=== PATIENT | male | born 1990 | race Caucasian/White ===

== ENCOUNTER 2017-07-04 19:17 | Emergency (ER) | payer SELFPAY | END 2017-07-04 19:41 | disposition home or self-care (01) | LOC: ERS 19:17 | DX: J06.9 Acute upper respiratory infection, unspecified (principal); J45.909 Unspecified asthma, uncomplicated; F17.210 Nicotine dependence, cigarettes, uncomplicated | CPT/HCPCS: 99283 ==

== ENCOUNTER 2018-01-08 02:51 | Inpatient (IN) | payer SELFPAY ==
[2018-01-08] MEDS ORDERED: Fentanyl 100 MCG/2 ML VIAL ONE ×3 (03:10→13:16)
[2018-01-08 04:49] LABS: #Lymphocytes 1.4 thou/uL (1.20-3.40); #Monocytes 1.1 thou/uL (0.11-0.59); #Neutrophils 14.2 thou/uL (1.40-6.50); %Basophils 0.2 % (0.0-1.0); %Eosinophils 0.1 % (0.0-10.0); %Lymphocytes 8.6 % (21.0-51.0); %Monocytes 6.4 % (0.0-10.0); %Neutrophils 84.7 % (42.0-75.0); Hemoglobin 14.6 g/dL (14.0-18.0); Mean Corpuscular HGB CONC 33.2 g/dL (32.0-36.0); Mean Corpuscular Hemoglobin 29.8 pg (27.0-31.0); Mean Corpuscular Volume 89.8 fL (78.0-98.0); Mean Platelet Volume 8.5 fL (7.4-10.4); Platelet Count 195 thou/uL (130-400); RBC Distribution Width 12.5 % (11.5-14.5); Red Blood Cell (RBC) Count 4.91 mill/uL (4.70-6.10); White Blood Cell (WBC) Count 16.8 thou/uL (4.8-10.8)
[2018-01-08 04:57] LABS: Amphetamine Detected (NotDetected); Barbiturates Screen Not Detected (NotDetected); Benzodiazepine Screen Not Detected (NotDetected); Cocaine Metabolite Screen Not Detected (NotDetected); Medtox Control Line Valid? VALID (VALID); Medtox Reader # READER 4; Methadone Not Detected (NotDetected); Methamphetamine Detected (NotDetected); Opiate Screen Not Detected (NotDetected); Oxycodone Screen Not Detected (NotDetected); Phencyclidine (PCP) Not Detected (NotDetected); THC/Cannabinoid Screen Detected (NotDetected); Tricyclic Screen Not Detected (NotDetected)
[2018-01-08] MEDS ORDERED: Ondansetron HCl/PF 4 MG/2 ML Vial IVP PRN ×2 (05:07→13:19)
[2018-01-08] MEDS ORDERED: Morphine 4 MG/ML VIAL SLOW IVP PRN (05:07)
[2018-01-08 05:10] LABS: Acetaminophen Less than 6.0 mcg/mL (10.0-30.0); Alcohol 47 mg/dL (Less than 10); Salicylate Less than 8.0 mg/dL (15.0-30.0)
[2018-01-08 05:11] LABS: ALT (SGPT) 13 U/L (8-55); AST (SGOT) 24 U/L (5-34); Albumin 4.4 g/dL (3.5-5.0); Alkaline Phosphatase 55 U/L (40-150); Anion Gap 14 mmol/L (10-20); BUN (Urea Nitrogen) 10 mg/dL (8.9-20.6); Bilirubin, Total 0.4 mg/dL (0.2-1.2); CK (CPK) 417 U/L (30-200); Calc. Creatinine Clearance 0 mL/min (70-130); Calcium 8.3 mg/dL (7.8-10.44); Carbon Dioxide 20 mmol/L (22-29); Chloride 108 mmol/L (98-107); Estimated GFR-MDRD Greater than 90; Globulin 2.8 g/dL (2.4-3.5); Glucose 97 mg/dL (70-105); Potassium 3.7 mmol/L (3.5-5.1); Protein, Total 7.2 g/dL (6.0-8.3); Sodium 138 mmol/L (136-145)
[2018-01-08] MEDS: Sodium Chloride 0.9% 1,000 ML IV SCH ×4 (05:32→20:11)
[2018-01-08 05:59] VITALS: BMI 19.4
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
[2018-01-08] MEDS ORDERED: CEFAZOLIN/Water 2 GM/20 ML SYRINGE SLOW IVP SCH (08:15)
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
[2018-01-08] MEDS ORDERED: Ondansetron ODT 4 MG TAB PO PRN (10:14)
[2018-01-08] MEDS ORDERED: Acetaminophen/Codeine 30-300mg Tablet PO PRN (10:16)
[2018-01-08] MEDS ORDERED: Morphine 4 MG/ML VIAL ONE (11:08)
[2018-01-08] MEDS ORDERED: CEFAZOLIN/Water 2 GM/20 ML SYRINGE ONE (11:11)
[2018-01-08] MEDS ORDERED: Midazolam HCl 2 mg/2 ml Vial ONE (11:22)
[2018-01-08] MEDS: CEFAZOLIN/Water 2 GM/20 ML SYRINGE SLOW IVP SCH ×2 (11:33→18:04)
[2018-01-08] MEDS ORDERED: Promethazine HCl 25 MG/ML VIAL IM PRN ×2 (13:19→17:16)
[2018-01-08] MEDS ORDERED: Promethazine HCl 25 MG/ML VIAL SLOW IVP PRN (13:19)
[2018-01-08] MEDS ORDERED: HYDROmorphone 2 MG/ML VIAL SLOW IVP PRN (13:19)
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
--- NOTE | 2018-01-08 14:19 | RAD ---
LEFT FOREARM RADIOGRAPHS 2 VIEWS: DATE: 01/08/18. PROVIDED CLINICAL HISTORY: Fracture. FINDINGS: Comparison is made with the examination performed earlier same date. Spot fluoroscopic frontal and l ateral views of the left forearm demonstrate plate and screw fixation of the previously described for earm fractures with resultant improved alignment. IMPRESSION: As above. POS: [facility]
[2018-01-08] MEDS: Nicotine 21 MG PATCH TD SCH (14:36)
[2018-01-08] MEDS ORDERED: Ondansetron HCl/PF 4 MG/2 ML Vial ONE (14:56)
[2018-01-08] MEDS ORDERED: Lidocaine 1% PF 5 ML VIAL ONE (14:56)
[2018-01-08] MEDS ORDERED: PROPOFOL 200 MG/20 ML VIAL ONE (14:56)
[2018-01-08] MEDS: Fentanyl 100 MCG/2 ML VIAL SLOW IVP PRN ×2 (15:34→17:02)
[2018-01-08] MEDS ORDERED: diphenhydrAMINE 50 MG/ML VIAL IVP PRN (17:16)
[2018-01-08] MEDS ORDERED: Naloxone HCl 0.4 mg/ml Vial IV PRN (17:16)
[2018-01-08] MEDS ORDERED: Zolpidem Tartrate 5 MG TAB PO PRN (17:16)
[2018-01-08] MEDS ORDERED: diphenhydrAMINE 50 MG/ML VIAL IM PRN (17:16)
[2018-01-08] MEDS ORDERED: Communication Order-Pharmacy FS SCH (17:30)
[2018-01-08] MEDS: Morphine CADD 1 MG/ML CADD IVPB PRN (18:00)
[2018-01-09] MEDS: Ondansetron HCl/PF 4 MG/2 ML Vial IVP PRN (02:52)
[2018-01-09] MEDS: CEFAZOLIN/Water 2 GM/20 ML SYRINGE SLOW IVP SCH ×3 (02:52→17:36)
[2018-01-09] MEDS: Enoxaparin Sodium 30 MG/0.3 ML SYRINGE SC SCH (08:35)
[2018-01-09] MEDS: Nicotine 21 MG PATCH TD SCH (10:20)
[2018-01-09] MEDS: Acetaminophen 500 MG TAB PO SCH ×3 (11:58→23:49)
[2018-01-09] MEDS: Ketorolac Tromethamine 30 MG/ML VIAL IVP SCH ×3 (11:58→23:50)
[2018-01-09] MEDS: Morphine CADD 1 MG/ML CADD IVPB PRN (15:37)
[2018-01-10] MEDS: CEFAZOLIN/Water 2 GM/20 ML SYRINGE SLOW IVP SCH ×3 (03:24→18:30)
[2018-01-10] MEDS: Sodium Chloride 0.9% 1,000 ML IV SCH ×2 (03:56→23:54)
[2018-01-10] MEDS: Acetaminophen 500 MG TAB PO SCH ×3 (05:29→18:05)
[2018-01-10] MEDS: Ketorolac Tromethamine 30 MG/ML VIAL IVP SCH ×3 (05:30→18:05)
[2018-01-10 07:19] LABS: #Eosinphils 0.1 thou/uL (0.0-0.7); #Lymphocytes 1.3 thou/uL (1.20-3.40); #Monocytes 0.7 thou/uL (0.11-0.59); #Neutrophils 3.9 thou/uL (1.40-6.50); %Basophils 0.8 % (0.0-1.0); %Eosinophils 1.6 % (0.0-10.0); %Lymphocytes 21.7 % (21.0-51.0); %Monocytes 12.1 % (0.0-10.0); %Neutrophils 63.8 % (42.0-75.0); Hemoglobin 12.6 g/dL (14.0-18.0); Mean Corpuscular HGB CONC 33.6 g/dL (32.0-36.0); Mean Corpuscular Hemoglobin 30.2 pg (27.0-31.0); Mean Corpuscular Volume 89.8 fL (78.0-98.0); Mean Platelet Volume 8.7 fL (7.4-10.4); Platelet Count 144 thou/uL (130-400); RBC Distribution Width 12.2 % (11.5-14.5); Red Blood Cell (RBC) Count 4.16 mill/uL (4.70-6.10)
[2018-01-10] MEDS: Enoxaparin Sodium 30 MG/0.3 ML SYRINGE SC SCH (09:33)
[2018-01-10] MEDS: Nicotine 21 MG PATCH TD SCH (09:33)
[2018-01-10] MEDS ORDERED: Tamsulosin HCl 0.4 MG CAP PO ONE (11:15)
[2018-01-11] MEDS: Ketorolac Tromethamine 30 MG/ML VIAL IVP SCH ×5 (00:01→23:58)
[2018-01-11] MEDS: Acetaminophen 500 MG TAB PO SCH ×5 (01:56→23:59)
[2018-01-11] MEDS: CEFAZOLIN/Water 2 GM/20 ML SYRINGE SLOW IVP SCH ×3 (03:07→17:47)
[2018-01-11 08:30] LABS: #Monocytes 0.4 thou/uL (0.11-0.59); #Neutrophils 4.7 thou/uL (1.40-6.50); %Basophils 0.6 % (0.0-1.0); %Eosinophils 0.6 % (0.0-10.0); %Lymphocytes 15.8 % (21.0-51.0); %Monocytes 6.2 % (0.0-10.0); %Neutrophils 76.9 % (42.0-75.0); Hemoglobin 12.4 g/dL (14.0-18.0); Mean Corpuscular HGB CONC 32.9 g/dL (32.0-36.0); Mean Corpuscular Hemoglobin 29.5 pg (27.0-31.0); Mean Corpuscular Volume 89.5 fL (78.0-98.0); Mean Platelet Volume 8.2 fL (7.4-10.4); Platelet Count 154 thou/uL (130-400); RBC Distribution Width 12.1 % (11.5-14.5); White Blood Cell (WBC) Count 6.1 thou/uL (4.8-10.8)
[2018-01-11] MEDS: Nicotine 21 MG PATCH TD SCH (09:35)
[2018-01-11] MEDS: Enoxaparin Sodium 30 MG/0.3 ML SYRINGE SC SCH (09:38)
--- NOTE | 2018-01-11 10:08 | RAD ---
LEFT HUMERUS TWO VIEWS: HISTORY: Pain. COMPARISON: None. FINDINGS: No fracture. No cortical irregularity. No periosteal reaction. IMPRESSION: No fracture. POS: [facility]
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
[2018-01-11] MEDS: Sodium Chloride 0.9% 1,000 ML IV SCH (23:12)
[2018-01-12] MEDS: CEFAZOLIN/Water 2 GM/20 ML SYRINGE SLOW IVP SCH ×3 (03:05→18:33)
[2018-01-12] MEDS: Acetaminophen 500 MG TAB PO SCH (05:18)
[2018-01-12] MEDS: Ketorolac Tromethamine 30 MG/ML VIAL IVP SCH ×2 (05:19→19:10)
[2018-01-12] MEDS: Morphine CADD 1 MG/ML CADD IVPB PRN (07:12)
[2018-01-12] MEDS: Ondansetron HCl/PF 4 MG/2 ML Vial IVP PRN (08:06)
[2018-01-12] MEDS: Enoxaparin Sodium 30 MG/0.3 ML SYRINGE SC SCH (08:10)
[2018-01-12] MEDS: Nicotine 21 MG PATCH TD SCH (10:12)
[2018-01-12] MEDS ORDERED: CEFAZOLIN/Water 2 GM/20 ML SYRINGE ONE (10:14)
[2018-01-12] MEDS ORDERED: PROPOFOL 200 MG/20 ML VIAL ONE (10:22)
[2018-01-12] MEDS ORDERED: Ondansetron HCl/PF 4 MG/2 ML Vial ONE (10:22)
[2018-01-12] MEDS ORDERED: ePHEDrine/0.9% NaCl/PF SYRINGE 50 mg/10 ml ONE (10:22)
[2018-01-12] MEDS ORDERED: Dexamethasone 20 MG/5 ML VIAL ONE (10:22)
[2018-01-12] MEDS ORDERED: Fentanyl 100 MCG/2 ML VIAL ONE ×2 (11:07→12:51)
[2018-01-12] MEDS ORDERED: Midazolam HCl 2 mg/2 ml Vial ONE (11:07)
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
[2018-01-12] MEDS ORDERED: Meperidine HCl/PF 25 MG/ML VIAL ONE (12:33)
[2018-01-12] MEDS ORDERED: Promethazine HCl 25 MG/ML VIAL IM PRN ×2 (14:19→14:20)
[2018-01-12] MEDS ORDERED: Ondansetron HCl/PF 4 MG/2 ML Vial IVP PRN ×2 (14:19→14:20)
[2018-01-12] MEDS ORDERED: Promethazine HCl 25 MG/ML VIAL SLOW IVP PRN ×2 (14:19→14:20)
[2018-01-12] MEDS ORDERED: HYDROmorphone 2 MG/ML VIAL SLOW IVP PRN (14:20)
[2018-01-12] MEDS ORDERED: Meperidine HCl/PF 25 MG/ML VIAL SLOW IVP PRN (14:20)
[2018-01-12] MEDS: Sodium Chloride 0.9% 1,000 ML IV SCH (18:34)
[2018-01-12] MEDS: Pregabalin 50 MG CAP PO SCH (20:11)
[2018-01-12] MEDS: Ascorbic Acid 500 mg Chewable Tablet PO SCH (20:13)
[2018-01-12] MEDS: pyridOXINE 50 MG (B6) TAB PO SCH (20:13)
[2018-01-13] MEDS: CEFAZOLIN/Water 2 GM/20 ML SYRINGE SLOW IVP SCH ×2 (02:10→11:10)
[2018-01-13] MEDS: Ketorolac Tromethamine 30 MG/ML VIAL IVP SCH ×3 (02:11→18:31)
[2018-01-13] MEDS: Sodium Chloride 0.9% 1,000 ML IV SCH (04:26)
[2018-01-13 05:35] LABS: #Lymphocytes 0.9 thou/uL (1.20-3.40); #Monocytes 0.7 thou/uL (0.11-0.59); #Neutrophils 6.6 thou/uL (1.40-6.50); %Basophils 0.3 % (0.0-1.0); %Eosinophils 0.1 % (0.0-10.0); %Lymphocytes 11.3 % (21.0-51.0); %Monocytes 8.6 % (0.0-10.0); %Neutrophils 79.8 % (42.0-75.0); Hemoglobin 11.4 g/dL (14.0-18.0); Mean Corpuscular HGB CONC 33.1 g/dL (32.0-36.0); Mean Corpuscular Hemoglobin 29.7 pg (27.0-31.0); Mean Corpuscular Volume 89.6 fL (78.0-98.0); Mean Platelet Volume 7.9 fL (7.4-10.4); Platelet Count 230 thou/uL (130-400); RBC Distribution Width 11.9 % (11.5-14.5); Red Blood Cell (RBC) Count 3.85 mill/uL (4.70-6.10); White Blood Cell (WBC) Count 8.3 thou/uL (4.8-10.8)
[2018-01-13] MEDS: pyridOXINE 50 MG (B6) TAB PO SCH ×2 (08:58→21:06)
[2018-01-13] MEDS: Ascorbic Acid 500 mg Chewable Tablet PO SCH ×2 (08:58→21:07)
[2018-01-13] MEDS: Pregabalin 50 MG CAP PO SCH ×2 (08:58→21:06)
[2018-01-13] MEDS: Enoxaparin Sodium 30 MG/0.3 ML SYRINGE SC SCH (08:59)
[2018-01-13] MEDS: Nicotine 21 MG PATCH TD SCH (08:59)
[2018-01-13] MEDS: fentaNYL Citrate/PF 2,000 MCG in Sodium Chloride 0.9% 60 ML IV PRN (12:58)
[2018-01-14] MEDS: Ketorolac Tromethamine 30 MG/ML VIAL IVP SCH ×3 (03:50→18:31)
[2018-01-14] MEDS: Sodium Chloride 0.9% 1,000 ML IV SCH (05:07)
[2018-01-14 05:20] LABS: #Eosinphils 0.1 thou/uL (0.0-0.7); #Lymphocytes 2.4 thou/uL (1.20-3.40); #Monocytes 0.6 thou/uL (0.11-0.59); #Neutrophils 4.1 thou/uL (1.40-6.50); %Basophils 0.6 % (0.0-1.0); %Eosinophils 1.9 % (0.0-10.0); %Lymphocytes 33.3 % (21.0-51.0); %Monocytes 8.6 % (0.0-10.0); %Neutrophils 55.6 % (42.0-75.0); Mean Corpuscular HGB CONC 33.7 g/dL (32.0-36.0); Mean Corpuscular Hemoglobin 30.1 pg (27.0-31.0); Mean Corpuscular Volume 89.2 fL (78.0-98.0); Mean Platelet Volume 7.6 fL (7.4-10.4); Platelet Count 216 thou/uL (130-400); RBC Distribution Width 12.1 % (11.5-14.5); Red Blood Cell (RBC) Count 3.98 mill/uL (4.70-6.10); White Blood Cell (WBC) Count 7.3 thou/uL (4.8-10.8)
[2018-01-14] MEDS: Pregabalin 50 MG CAP PO SCH ×2 (08:07→21:15)
[2018-01-14] MEDS: pyridOXINE 50 MG (B6) TAB PO SCH ×2 (08:07→21:15)
[2018-01-14] MEDS: Ascorbic Acid 500 mg Chewable Tablet PO SCH ×2 (08:07→21:15)
[2018-01-14] MEDS: Enoxaparin Sodium 30 MG/0.3 ML SYRINGE SC SCH (08:07)
[2018-01-14] MEDS: Nicotine 21 MG PATCH TD SCH (08:08)
[2018-01-14] MEDS: fentaNYL Citrate/PF 2,000 MCG in Sodium Chloride 0.9% 60 ML IV PRN (10:04)
[2018-01-14] MEDS ORDERED: Acetaminophen 500 MG TAB PO PRN (10:55)
[2018-01-15] MEDS: Sodium Chloride 0.9% 1,000 ML IV SCH (02:52)
[2018-01-15] MEDS: Ketorolac Tromethamine 30 MG/ML VIAL IVP SCH ×3 (03:12→20:03)
[2018-01-15 06:05] LABS: #Eosinphils 0.2 thou/uL (0.0-0.7); #Lymphocytes 2.2 thou/uL (1.20-3.40); #Monocytes 0.8 thou/uL (0.11-0.59); %Basophils 0.6 % (0.0-1.0); %Eosinophils 3.2 % (0.0-10.0); %Lymphocytes 35.5 % (21.0-51.0); %Monocytes 12.3 % (0.0-10.0); %Neutrophils 48.5 % (42.0-75.0); Hemoglobin 11.7 g/dL (14.0-18.0); Mean Corpuscular HGB CONC 32.8 g/dL (32.0-36.0); Mean Corpuscular Hemoglobin 29.3 pg (27.0-31.0); Mean Corpuscular Volume 89.4 fL (78.0-98.0); Mean Platelet Volume 7.6 fL (7.4-10.4); Platelet Count 238 thou/uL (130-400); RBC Distribution Width 12.1 % (11.5-14.5); Red Blood Cell (RBC) Count 3.98 mill/uL (4.70-6.10); White Blood Cell (WBC) Count 6.1 thou/uL (4.8-10.8)
[2018-01-15] MEDS ORDERED: Midazolam HCl 2 mg/2 ml Vial ONE (07:20)
[2018-01-15] MEDS ORDERED: Fentanyl 100 MCG/2 ML VIAL ONE ×4 (07:20→10:31)
[2018-01-15] MEDS ORDERED: Bacitracin Zinc Ointment 30 gm TUBE ONE (07:41)
[2018-01-15] MEDS ORDERED: Bupivacaine HCl 0.5%/Epinephrine 1:200,000/PF 30 ml Vial ONE (07:41)
[2018-01-15] MEDS ORDERED: Thrombin 5000 UNITS/5 ML VIAL ONE (07:41)
[2018-01-15] MEDS ORDERED: Lidocaine 1% (PF) 30 ML VIAL ONE (07:41)
[2018-01-15] MEDS ORDERED: Sodium Chloride 0.9% 30 ML ONE (07:41)
[2018-01-15] MEDS ORDERED: Bupivacaine PF 0.5% 30 ML VIAL ONE (07:42)
[2018-01-15] MEDS ORDERED: CEFAZOLIN/Water 2 GM/20 ML SYRINGE ONE (08:01)
[2018-01-15] MEDS ORDERED: HYDROmorphone 2 MG/ML VIAL ONE (09:05)
[2018-01-15] MEDS ORDERED: Ondansetron ODT 4 MG TAB ONE (09:17)
[2018-01-15] MEDS ORDERED: Promethazine HCl 25 MG/ML VIAL IM PRN (10:17)
[2018-01-15] MEDS ORDERED: Ondansetron HCl/PF 4 MG/2 ML Vial IVP PRN (10:17)
[2018-01-15] MEDS ORDERED: HYDROmorphone 2 MG/ML VIAL SLOW IVP PRN (10:17)
[2018-01-15] MEDS ORDERED: Promethazine HCl 25 MG/ML VIAL SLOW IVP PRN (10:17)
[2018-01-15] MEDS ORDERED: Ketorolac Tromethamine 30 MG/ML VIAL IVP PRN (10:28)
[2018-01-15] MEDS ORDERED: Meperidine HCl/PF 25 MG/ML VIAL IM PRN (10:28)
[2018-01-15] MEDS ORDERED: Morphine 4 MG/ML VIAL SLOW IVP PRN (10:45)
[2018-01-15] MEDS: Pregabalin 50 MG CAP PO SCH ×2 (11:09→20:02)
[2018-01-15] MEDS: pyridOXINE 50 MG (B6) TAB PO SCH ×2 (12:01→20:03)
[2018-01-15] MEDS: Ascorbic Acid 500 mg Chewable Tablet PO SCH ×2 (12:01→20:03)
[2018-01-15] MEDS: Enoxaparin Sodium 30 MG/0.3 ML SYRINGE SC SCH (12:01)
[2018-01-15] MEDS: Nicotine 21 MG PATCH TD SCH ×2 (12:02→15:56)
[2018-01-15] MEDS: Fentanyl 100 MCG/2 ML VIAL SLOW IVP PRN (15:58)
[2018-01-15] MEDS ORDERED: PROPOFOL 200 MG/20 ML VIAL ONE (16:08)
[2018-01-15] MEDS ORDERED: Lidocaine 1% PF 5 ML VIAL ONE (16:08)
[2018-01-15] MEDS ORDERED: Ondansetron HCl/PF 4 MG/2 ML Vial ONE (16:08)
[2018-01-15] MEDS: cloNIDine 0.1 MG TAB PO SCH (20:02)
[2018-01-15] MEDS ORDERED: Vancomycin HCl 1 GM in Premix Bag 1 BAG IVPB SCH (21:00)
[2018-01-16] MEDS: Sodium Chloride 0.9% 1,000 ML IV SCH ×2 (03:57→18:40)
[2018-01-16] MEDS: Ketorolac Tromethamine 30 MG/ML VIAL IVP SCH ×3 (03:57→18:40)
[2018-01-16] MEDS: Ascorbic Acid 500 mg Chewable Tablet PO SCH ×2 (09:10→20:39)
[2018-01-16] MEDS: cloNIDine 0.1 MG TAB PO SCH ×2 (09:11→20:39)
[2018-01-16] MEDS: Pregabalin 50 MG CAP PO SCH ×2 (09:11→20:39)
[2018-01-16] MEDS: Enoxaparin Sodium 30 MG/0.3 ML SYRINGE SC SCH (09:11)
[2018-01-16] MEDS: pyridOXINE 50 MG (B6) TAB PO SCH ×2 (09:11→20:39)
[2018-01-16] MEDS: Nicotine 21 MG PATCH TD SCH (09:12)
--- NOTE | 2018-01-16 10:48 | OP ---
PREOPERATIVE DIAGNOSES: 1. Left median nerve contusion/neuritis with no evidence of sensory loss but with sensory . 2. Mild weakness of the flexor pollicis longus, but intact flexor pollicis longus when the digit is held in extension. 3. A 12 x 6 cm wound with postop findings today no gross infection or contamination. PROCEDURES PERFORMED: 1. Debridement of wound (25625 CPT code). 2. Left forearm split-thickness skin graft, 12 x 6 cm which is the wound size after debridement. COMPLICATIONS: None. TOURNIQUET TIME: None. ESTIMATED BLOOD LOSS: 10 mL or less. INDICATIONS: The patient returns for staged wound management because he had pain with attempted clos ure. He had had a compartment syndrome type like presentation with delayed swelling of a both bone f orearm fracture that was treated with much needed open reduction internal fixation as well as wound c are. Attempts at wound closure 3 days after the procedure or 4 days ago were unsuccessful and thus r eturns for staged wound management which would be to clean the wound and if not contaminated, then cl ose. DESCRIPTION OF PROCEDURE: After successful general LMA technique by [facility], the limb wa s prepped and draped. The patient had the limb exsanguinated, tourniquet inflated to 250 mmHg pressu re and then we inspected the forearm incision and found to be about 12 X 6.5 cm oblong or football li ke shape and there was no gross contamination deep to it to include the radius fracture itself. The patient then had 365 degree retraction, finished debridement of the denuded muscles present on th e subcutaneous level and began debridement using the following techniques. 1. Excisional. 2. Removed the muscle, denuded muscle, fat, and some skin. 3. Instrumentation used, tenotomy scissors, Arthur blade, 15 blade, knife, and irrigation. 4. There is no untoward complications. Once we finished the irrigation and debridement, visualized fracture and no gross infection of the ra dius, and ankle then attempted closed, but it was too tight, so opted to go ahead and do split-thickn ess skin graft as we suggested. This was accomplished after prepping the left ipsilateral thigh, rita ing a 3 cm wide by 10 cm long segment to cover up the large hand wound dorsally and once this has fin ished completion and healing, we will begin more aggressive extension and flexion program, otherwise continue on the same program till the end.
[2018-01-16] MEDS: diphenhydrAMINE 25 MG CAP PO PRN (18:40)
[2018-01-17] MEDS: diphenhydrAMINE 25 MG CAP PO PRN ×2 (01:56→10:18)
[2018-01-17] MEDS: Ketorolac Tromethamine 30 MG/ML VIAL IVP SCH ×2 (02:01→10:20)
[2018-01-17] MEDS: pyridOXINE 50 MG (B6) TAB PO SCH (10:19)
[2018-01-17] MEDS: cloNIDine 0.1 MG TAB PO SCH (10:19)
[2018-01-17] MEDS: Pregabalin 50 MG CAP PO SCH (10:19)
[2018-01-17] MEDS: Ascorbic Acid 500 mg Chewable Tablet PO SCH (10:19)
[2018-01-17] MEDS: Enoxaparin Sodium 30 MG/0.3 ML SYRINGE SC SCH (10:20)
[2018-01-17] MEDS: Nicotine 21 MG PATCH TD SCH (10:20)
[2018-01-17 11:37] VITALS: BP 117/61; TEMP 97.6
[2018-01-17] MEDS: Sodium Chloride 0.9% 1,000 ML IV SCH (14:57)
== END 2018-01-17 15:15 | disposition home or self-care (01) | DRG 465 ==
LOC: ERS 02:51 → OBSVTOIN 03:55 → SURG A 03:55
PROVIDERS: ADMIT Orthopaedic Surgery; ATTEND Orthopaedic Surgery
PROC: 0PSJ04Z Reposition Left Radius with Internal Fixation Device, Open Approach (ICD-10-PCS; principal; 2018-01-08)
PROC: 0PSL04Z Reposition Left Ulna with Internal Fixation Device, Open Approach (ICD-10-PCS; 2018-01-08)
PROC: 0XQFXZZ Repair Left Lower Arm, External Approach (ICD-10-PCS; 2018-01-12)
PROC: 0HREX74 Replacement of Left Lower Arm Skin with Autologous Tissue Substitute, Partial Thickness, External Approach (ICD-10-PCS; 2018-01-15)
PROC: 0HBJXZZ Excision of Left Upper Leg Skin, External Approach (ICD-10-PCS; 2018-01-15)
DX: S52.92XA Unspecified fracture of left forearm, initial encounter for closed fracture (principal); S52.252A Displaced comminuted fracture of shaft of ulna, left arm, initial encounter for closed fracture; Y04.2XXA Assault by strike against or bumped into by another person, initial encounter; Y93.9 Activity, unspecified; Y92.9 Unspecified place or not applicable; Y99.9 Unspecified external cause status; S64.12XA Injury of median nerve at wrist and hand level of left arm, initial encounter
CPT/HCPCS: 25560; 36415; 76000; 76001; 80053; 80306; 80307; 82550; 85025; 85652; 96361; 96374; A4216; C1713; G8987-GO-CK; G8988-GO-CI; J0670; J1100; J1170; J1650; J1885; J2001; J2175; J2250; J2270; J2274; J2405; J2704; J3010; J3370; J3490; J7050; Q0162; S0020

== ENCOUNTER 2018-04-26 12:17 | Emergency (ER) | payer SELFPAY ==
--- NOTE | 2018-04-26 14:19 | RAD ---
LEFT FOREARM 2 VIEWS: Date: 04/26/18 HISTORY: Pain. COMPARISON: Radiograph dated 01/08/18. FINDINGS: No hardware complication of the plate and screw fixation of intrafragmentary screws of the mid ulnar and radial fractures. There is bridging of the bone formation. IMPRESSION: Satisfactory postoperative appearance with expected interval healing. POS: [facility]
== END 2018-04-26 14:23 | disposition home or self-care (01) ==
LOC: ERS 12:17
DX: M79.632 Pain in left forearm (principal); J45.909 Unspecified asthma, uncomplicated; F32.9 Major depressive disorder, single episode, unspecified; F41.9 Anxiety disorder, unspecified; F17.210 Nicotine dependence, cigarettes, uncomplicated

== ENCOUNTER 2018-07-08 08:08 | Emergency (ER) | payer SELFPAY ==
[2018-07-08 08:40] LABS: #Basophils 0.1 thou/uL (0.0-0.2); #Eosinphils 0.2 thou/uL (0.0-0.7); #Lymphocytes 2.2 thou/uL (1.20-3.40); #Monocytes 0.8 thou/uL (0.11-0.59); #Neutrophils 8.6 thou/uL (1.40-6.50); %Basophils 0.5 % (0.0-1.0); %Eosinophils 1.3 % (0.0-10.0); %Lymphocytes 18.7 % (21.0-51.0); %Monocytes 6.6 % (0.0-10.0); Mean Corpuscular HGB CONC 32.8 g/dL (32.0-36.0); Mean Corpuscular Hemoglobin 29.3 pg (27.0-31.0); Mean Corpuscular Volume 89.2 fL (78.0-98.0); Mean Platelet Volume 8.5 fL (7.4-10.4); Platelet Count 197 thou/uL (130-400); RBC Distribution Width 13.5 % (11.5-14.5); Red Blood Cell (RBC) Count 4.77 mill/uL (4.70-6.10); White Blood Cell (WBC) Count 11.8 thou/uL (4.8-10.8)
[2018-07-08 09:05] LABS: ALT (SGPT) 18 U/L (8-55); AST (SGOT) 18 U/L (5-34); Albumin 4.3 g/dL (3.5-5.0); Alkaline Phosphatase 72 U/L (40-150); Anion Gap 10 mmol/L (10-20); BUN (Urea Nitrogen) 19 mg/dL (8.9-20.6); Bilirubin, Total 0.3 mg/dL (0.2-1.2); Calc. Creatinine Clearance 0 mL/min (70-130); Calcium 9.6 mg/dL (7.8-10.44); Carbon Dioxide 30 mmol/L (22-29); Chloride 105 mmol/L (98-107); Estimated GFR-MDRD Greater than 90; Globulin 2.7 g/dL (2.4-3.5); Glucose 70 mg/dL (70-105); Lipase 52 U/L (8-78); Potassium 4.1 mmol/L (3.5-5.1); Sodium 141 mmol/L (136-145)
[2018-07-08 09:11] LABS: Bilirubin Negative (Negative); Blood, Urine Negative (Negative); Clarity TURBID (Clear); Glucose, Urine (Dipstick) Negative (Negative); Leukocyte Negative (Negative); Nitrite Negative (Negative); Protein, Urine (Dipstick) Negative (Neg-Trace); Specific Gravity, Urine 1.019 (1.002-1.036)
[2018-07-08] MEDS ORDERED: Haloperidol Lactate 5 MG/ML VIAL ONE (09:59)
== END 2018-07-08 11:37 | disposition home or self-care (01) ==
LOC: ERS 08:08
DX: F12.188 Cannabis abuse with other cannabis-induced disorder (principal); R10.9 Unspecified abdominal pain; J45.909 Unspecified asthma, uncomplicated; F17.210 Nicotine dependence, cigarettes, uncomplicated; F41.9 Anxiety disorder, unspecified; F32.9 Major depressive disorder, single episode, unspecified
CPT/HCPCS: 36415; 80053; 81003; 83690; 85025; 96374; J1630

== ENCOUNTER 2019-01-17 04:28 | Emergency (ER) | payer SELFPAY ==
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
== END 2019-01-17 05:15 | disposition home or self-care (01) ==
LOC: ERS 04:28
DX: S20.219A Contusion of unspecified front wall of thorax, initial encounter (principal); J45.909 Unspecified asthma, uncomplicated; F41.9 Anxiety disorder, unspecified; F32.9 Major depressive disorder, single episode, unspecified; F17.210 Nicotine dependence, cigarettes, uncomplicated; V00.131A Fall from skateboard, initial encounter; Y93.51 Activity, roller skating (inline) and skateboarding
CPT/HCPCS: 71046

== ENCOUNTER 2019-06-03 16:22 | Emergency (ER) | payer SELFPAY ==
[2019-06-03 16:59] LABS: #Basophils 0.1 thou/uL (0.0-0.2); #Eosinphils 0.1 thou/uL (0.0-0.7); #Lymphocytes 1.4 thou/uL (1.20-3.40); #Monocytes 0.6 thou/uL (0.11-0.59); #Neutrophils 7.1 thou/uL (1.40-6.50); %Eosinophils 0.9 % (0.0-10.0); %Lymphocytes 14.7 % (21.0-51.0); %Monocytes 6.7 % (0.0-10.0); %Neutrophils 76.7 % (42.0-75.0); Hemoglobin 14.9 g/dL (14.0-18.0); Mean Corpuscular HGB CONC 33.8 g/dL (32.0-36.0); Mean Corpuscular Hemoglobin 29.5 pg (27.0-31.0); Mean Corpuscular Volume 87.5 fL (78.0-98.0); Mean Platelet Volume 9.1 fL (7.4-10.4); Platelet Count 171 thou/uL (130-400); RBC Distribution Width 12.9 % (11.5-14.5); Red Blood Cell (RBC) Count 5.03 mill/uL (4.70-6.10); White Blood Cell (WBC) Count 9.3 thou/uL (4.8-10.8)
--- NOTE | 2019-06-03 17:05 | RAD ---
XR Chest 1 View Portable HISTORY: Chest pain COMPARISON: 01/17/2019 FINDINGS: The heart size is normal. The lungs are well expanded without focal areas of consolidation, pneumothorax or pleural effusions. IMPRESSION: No radiographic evidence of acute cardiopulmonary process.
--- NOTE | 2019-06-03 17:08 | RAD ---
XR Forearm Lt 2 View STANDARD HISTORY: Left forearm pain FINDINGS: Postop changes of internal fixation of the fractures of the shafts of the left radius and ulna with p late and screws are again seen without change in position or alignment. The fracture line through the ulnar is again seen. There is progressive healing of the fracture of the shaft of the radius with faint visualization of the fracture line.
[2019-06-03 17:20] LABS: ALT (SGPT) 14 U/L (8-55); AST (SGOT) 15 U/L (5-34); Albumin 4.2 g/dL (3.5-5.0); Alkaline Phosphatase 60 U/L (40-110); Anion Gap 9 mmol/L (10-20); BUN (Urea Nitrogen) 16 mg/dL (8.9-20.6); Bilirubin, Total 0.2 mg/dL (0.2-1.2); Calc. Creatinine Clearance 0 mL/min (70-130); Calcium 9.2 mg/dL (7.8-10.44); Carbon Dioxide 31 mmol/L (22-29); Chloride 102 mmol/L (98-107); Estimated GFR-MDRD 85; Globulin 2.6 g/dL (2.4-3.5); Glucose 116 mg/dL (70-105); Potassium 4.5 mmol/L (3.5-5.1); Protein, Total 6.8 g/dL (6.0-8.3); Sodium 137 mmol/L (136-145)
[2019-06-03 19:44] LABS: Troponin I Less than 0.010 ng/mL (< 0.028)
== END 2019-06-03 20:07 | disposition home or self-care (01) ==
LOC: ERS 16:22
DX: R07.9 Chest pain, unspecified (principal); M79.89 Other specified soft tissue disorders; J45.909 Unspecified asthma, uncomplicated; F41.9 Anxiety disorder, unspecified; F32.9 Major depressive disorder, single episode, unspecified; F17.210 Nicotine dependence, cigarettes, uncomplicated
CPT/HCPCS: 36415; 71045; 80053; 84443; 84484; 85025; 93005

== ENCOUNTER 2019-06-26 01:53 | Emergency (ER) | payer SELFPAY | END 2019-06-26 03:09 | disposition home or self-care (01) | LOC: ERS 01:53 | DX: M79.89 Other specified soft tissue disorders (principal); J45.909 Unspecified asthma, uncomplicated; F17.210 Nicotine dependence, cigarettes, uncomplicated | CPT/HCPCS: 99282 ==

== ENCOUNTER 2020-07-29 20:11 | Emergency (ER) | payer SELFPAY ==
[2020-07-29 21:00] LABS: #Basophils 0.1 thou/uL (0.0-0.2); #Eosinphils 0.1 thou/uL (0.0-0.7); #Lymphocytes 1.8 thou/uL (1.20-3.40); #Monocytes 0.6 thou/uL (0.11-0.59); #Neutrophils 3.9 thou/uL (1.40-6.50); %Lymphocytes 27.8 % (21.0-51.0); %Monocytes 8.9 % (0.0-10.0); %Neutrophils 61.3 % (42.0-75.0); Hemoglobin 14.2 g/dL (14.0-18.0); Mean Corpuscular HGB CONC 32.8 g/dL (32.0-36.0); Mean Corpuscular Hemoglobin 28.9 pg (27.0-31.0); Mean Corpuscular Volume 87.9 fL (78.0-98.0); Mean Platelet Volume 8.9 fL (7.4-10.4); Platelet Count 192 thou/uL (130-400); RBC Distribution Width 12.7 % (11.5-14.5); Red Blood Cell (RBC) Count 4.93 mill/uL (4.70-6.10); White Blood Cell (WBC) Count 6.3 thou/uL (4.8-10.8)
[2020-07-29 21:23] LABS: ALT (SGPT) 17 U/L (8-55); AST (SGOT) 22 U/L (5-34); Albumin 4.4 g/dL (3.5-5.0); Alkaline Phosphatase 58 U/L (40-110); Anion Gap 15 mmol/L (10-20); BUN (Urea Nitrogen) 13 mg/dL (8.9-20.6); Bilirubin, Total 0.4 mg/dL (0.2-1.2); Calc. Creatinine Clearance 0 mL/min (70-130); Calcium 9.4 mg/dL (7.8-10.44); Carbon Dioxide 26 mmol/L (22-29); Chloride 102 mmol/L (98-107); Globulin 2.9 g/dL (2.4-3.5); Glucose 97 mg/dL (70-105); Potassium 3.9 mmol/L (3.5-5.1); Protein, Total 7.3 g/dL (6.0-8.3); Sodium 139 mmol/L (136-145)
[2020-07-29 21:52] LABS: Bacteria/HPF None Seen HPF (None Seen); Bilirubin Negative (Negative); Blood, Urine Negative (Negative); Clarity Clear (Clear); Glucose, Urine (Dipstick) Normal (Negative); Ketone, Urine 10 mg/dL (Negative); Leukocyte Negative Leu/uL (Negative); Mucous/LPF 1+ LPF (<2+); Nitrite Negative (Negative); Protein, Urine (Dipstick) 300 mg/dL (Neg-Trace); RBC/HPF 0-3 HPF (0-3); Specific Gravity, Urine 1.024 (1.002-1.036); Squamous Epithelial 0-3 HPF (0-3); Urobilinogen Normal mg/dL (Less than 2); pH, Urine 6.5 (5.0-9.0)
== END 2020-07-29 22:13 | disposition home or self-care (01) ==
LOC: ERS 20:11
DX: K40.90 Unilateral inguinal hernia, without obstruction or gangrene, not specified as recurrent (principal); N50.3 Cyst of epididymis; N43.3 Hydrocele, unspecified; J45.909 Unspecified asthma, uncomplicated; Z87.891 Personal history of nicotine dependence
CPT/HCPCS: 36415; 76870; 80053; 81003; 81015; 85025; 93976

== ENCOUNTER 2020-08-08 23:09 | Emergency (ER) | payer SELFPAY | END 2020-08-09 01:35 | disposition home or self-care (01) | LOC: ERS 23:09 | DX: R33.9 Retention of urine, unspecified (principal); J45.909 Unspecified asthma, uncomplicated; Z87.891 Personal history of nicotine dependence | CPT/HCPCS: 51702; 51798 ==